=== PATIENT | male | born 1990 | race Two or more races ===

== ENCOUNTER 2018-05-20 23:05 | Emergency (ER) | payer SELFPAY ==
[~2018-05-20] VITALS: Ht 177.8 cm; Wt 72.6 kg
[2018-05-20 23:08] VITALS: BP 142/74
[2018-05-20 23:18] VITALS: BP 142/74
--- NOTE | 2018-05-21 01:17 | Emergency Room Report ---
History of Present Illness General Chief Complaint: Medical Clearance Source: Patient Present Illness HPI Patient presents by [facility] for medical clearance for booking Patient was reported to have been tased Upon arrival the patient states "why are we here? Lets just go to prison already " Patient reports previous history of seizure disorder However does not take any medication Denies any chest pain denies any abdominal pain Does not have any other medical complaints at this time Allergies: Coded Allergies: No Known Allergies (Unverified , 05/20/18) Patient History Past Medical History: see triage record Pertinent Family History: none Reviewed Nursing Documentation: PMH: Agreed; PSxH: Agreed Nursing Documentation-PMH Past Medical History: No Stated History Hx Seizures: Yes - from etoh withdrawal Review of Systems All Other Systems: negative except mentioned in HPI Physical Exam Vital Signs Date Time Temp Pulse Resp B/P (MAP) Pulse Ox O2 Delivery O2 Flow Rate FiO2 05/20/18 23:06 98.0 110 16 142/74 98 Room Air 98.1 Sp02 EP Interpretation: reviewed, normal General Appearance: well appearing, no apparent distress Head: normocephalic, atraumatic Eyes: bilateral eye PERRL, bilateral eye other - Bilateral conjunctiva injected ENT: normal pharynx, no angioedema Neck: supple Respiratory: lungs clear Cardiovascular #1: regular rate, rhythm Gastrointestinal: non tender, soft Musculoskeletal: normal inspection Neurologic: alert, oriented x3, responsive Medical Decision Making Diagnostic Impression: Primary Impression: ok to book Additional Impression: Encounter for medical screening examination ER Course Patient ambulate well does not have any other medical complaints at this time Heart sounds are normal And otherwise stable for further booking Last Vital Signs Date Time Temp Pulse Resp B/P (MAP) Pulse Ox O2 Delivery O2 Flow Rate FiO2 05/20/18 23:18 98.1 16 142/74 98 Room Air 98.1 05/20/18 23:06 110 Status: unchanged Disposition: D/C TO LAW ENFORCEMENT IN [facility] Condition: Stable Referrals: NOT CHOSEN IPA/MD,REFERRING (PCP) Departure Forms: Assisted Clearance Patient Instructions: Medical Screening Exam Additional Instructions: Follow-up melly Borjas in the morning Return for any worsening or concerning symptoms Liza Espinoza DO May 21, 2018 01:17
== END 2018-05-20 23:18 ==
LOC: EMR 23:14
DX: G40.909 Epilepsy, unspecified, not intractable, without status epilepticus (principal); Z02.89 Encounter for other administrative examinations
CPT/HCPCS: 99283